=== PATIENT | male | born 1980 | race Two or more races ===

== ENCOUNTER 2022-04-03 16:08 | Emergency (ER) | payer SELFPAY ==
[~2022-04-03] VITALS: Ht 180.3 cm; Wt 85.0 kg
[2022-04-03] MEDS ORDERED: ONDANSETRON HCL 4 MG/2 ML VIAL IM ONE (16:30)
[2022-04-03] MEDS ORDERED: HYDROmorphone 2 MG/ML VIAL IM ONE (16:30)
[2022-04-03] MEDS ORDERED: KETOROLAC TROMETHAMINE 60 MG/2 ML VIAL IM ONE (16:30)
[2022-04-03] MEDS ORDERED: CeFAZolin 1 GM/DEXTROSE 50 ML IV ONE (18:15)
[2022-04-03] MEDS ORDERED: LIDOCAINE 1% 20 ML VIAL IARTIC ONE (18:15)
[2022-04-03] MEDS ORDERED: BUPIVACAINE HCL/PF 0.25% 10 ML VIAL IARTIC ONE (18:15)
[2022-04-03] MEDS ORDERED: LIDOCAINE 1% 10 ML VIAL IARTIC ONE (18:30)
[2022-04-03] MEDS ORDERED: HYDROmorphone 2 MG/ML VIAL IVP ONE (18:45)
[2022-04-03] MEDS ORDERED: ONDANSETRON HCL 4 MG/2 ML VIAL IVP ONE (19:15)
[2022-04-03] MEDS ORDERED: CEPH-558 PO (19:49)
[2022-04-03 20:03] VITALS: BP 142/85
== END 2022-04-03 20:05 | disposition home or self-care (01) ==
LOC: EMS 16:08
DX: S52.501A Unspecified fracture of the lower end of right radius, initial encounter for closed fracture (principal); W18.39XA Other fall on same level, initial encounter; Y93.89 Activity, other specified; Y92.89 Other specified places as the place of occurrence of the external cause; Y99.8 Other external cause status
CPT/HCPCS: 25605; 73110; 96365; 96372; 96375; 99284; J0690; J1170; J1885; J2405; J3490 ×2